=== PATIENT | male | born 1930 | race Caucasian/White ===

== ENCOUNTER 2017-01-11 10:30 | Emergency (ER) | payer MEDICARE ==
[~2017-01-11] VITALS: Ht 182.9 cm; Wt 89.3 kg
[~2017-01-11 10:30] MED LIST: CIPR500T4 PO
[2017-01-11 10:33] VITALS: BP 152/76; PULSE 75; RESP 18; TEMP 97.6; O2SAT 98
[2017-01-11] MEDS ORDERED: SODIUM CHLORIDE 0.9% FLUSH 10 ML FLUSH IVF PRN (10:45)
[2017-01-11 10:49] VITALS: O2SAT 98
[2017-01-11] MEDS ORDERED: TAMS0.4C4 PO (10:53)
[2017-01-11] MEDS ORDERED: FINA5TAB2 PO (10:53)
[2017-01-11] MEDS ORDERED: OMEP20TA PO (10:53)
[2017-01-11] MEDS ORDERED: AMLO2.5T PO (10:53)
[2017-01-11] MEDS ORDERED: ZOCO10TA PO (10:53)
[2017-01-11] MEDS ORDERED: LISI20TA3 PO (10:53)
--- NOTE | 2017-01-11 10:56 | PD ---
HPI Chief Complaint: Dizziness Time Seen by Provider: 10:40 Travel History International Travel<30 days: No Contact w/Intl Traveler<30days: No Traveled to known affect area: No History of Present Illness HPI 86-year-old male notes waking up with vertiginous dizziness. He tried to go back asleep and woke up with persistent vertigo. While he was vertiginous prior to ER arrival the patient was somewhat tremulous. Patient arrives by private vehicle. There was no shortness of breath or chest pain at any point. He denies headache. He denies any recent change in medication. He states he's been in his normal state of health over the past week or so. No otalgia or otorrhea. PFSH Past Medical History Cardiovascular Problems: Yes (HTN) High Cholesterol: Yes Diabetes: Yes (BORDERLINE) Patient Takes Glucophage: No Diminished Hearing: No GERD: Yes Genitourinary: Yes (ENLARGED PROSTATE) Hypertension: Yes Respiratory: Yes (SARCOIDOSIS) Triglycerides - High: Yes Tetanus Vaccination: Unknown Influenza Vaccination: Yes Social History Alcohol Use: No Tobacco Use: No Substance Use: No Allergies-Medications (Allergen,Severity, Reaction): Coded Allergies: Penicillin (Unverified Allergy, Unknown, 01/11/17) Reported Meds & Prescriptions Reported Meds & Active Scripts Active Meclizine (Meclizine HCl) 25 Mg Tab 25 Mg PO TID PRN Ativan (Lorazepam) 0.5 Mg Tab 0.5 Mg PO Q6H PRN Reported Tamsulosin (Tamsulosin HCl) 0.4 Mg Cap 0.4 Mg PO HS Finasteride 5 Mg Tab 5 Mg PO DAILY Do not crush. Zocor (Simvastatin) 10 Mg Tab 10 Mg PO DAILY Omeprazole 20 Mg Tab 20 Mg PO DAILY Amlodipine (Amlodipine Besylate) 2.5 Mg Tab 2.5 Mg PO DAILY Lisinopril-Hctz 20-25 Mg Tab 1 Tab PO DAILY Review of Systems Except as stated in HPI: all other systems reviewed are Neg Physical Exam Narrative GENERAL: 86-year-old male well-nourished male developed SKIN: Focused skin assessment warm/dry. HEAD: Atraumatic. Normocephalic. EYES: Pupils equal and round. No scleral icterus. No injection or drainage. ENT: No nasal bleeding or discharge. Mucous membranes pink and moist. NECK: Trachea midline. No JVD. CARDIOVASCULAR: Regular rate and rhythm. No murmur appreciated. RESPIRATORY: No accessory muscle use. Clear to auscultation. Breath sounds equal bilaterally. GASTROINTESTINAL: Abdomen soft, non-tender, nondistended. Hepatic and splenic margins not palpable. MUSCULOSKELETAL: No obvious deformities. No clubbing. No cyanosis. No edema. NEUROLOGICAL: Awake and alert. No obvious cranial nerve deficits. Motor grossly within normal limits. Normal speech. PSYCHIATRIC: Appropriate mood and affect; insight and judgment normal. Data Data Last Documented VS Vital Signs Date Time Temp Pulse Resp B/P Pulse Ox O2 Delivery O2 Flow Rate FiO2 01/11/17 12:07 69 16 132/61 96 Room Air 01/11/17 10:33 97.6 Vital signs reviewed Orders Electrocardiogram (01/11/17 10:41) Basic Metabolic Panel (Bmp) (01/11/17 10:41) Complete Blood Count With Diff (01/11/17 10:41) Troponin I (01/11/17 10:41) Ecg Monitoring (01/11/17 10:41) Iv Access Insert/Monitor (01/11/17 10:41) Oximetry (01/11/17 10:41) Sodium Chloride 0.9% Flush (Ns Flush) (01/11/17 10:45) Lorazepam Inj (Ativan Inj) (01/11/17 11:00) Meclizine (Antivert) (01/11/17 11:00) Labs Laboratory Tests Test 01/11/17 11:05 White Blood Count 5.4 TH/MM3 Red Blood Count 4.09 MIL/MM3 Hemoglobin 13.4 GM/DL Hematocrit 38.0 % Mean Corpuscular Volume 92.9 FL Mean Corpuscular Hemoglobin 32.8 PG Mean Corpuscular Hemoglobin 35.3 % Concent Red Cell Distribution Width 11.9 % Platelet Count 299 TH/MM3 Mean Platelet Volume 6.3 FL Neutrophils (%) (Auto) 66.5 % Lymphocytes (%) (Auto) 23.7 % Monocytes (%) (Auto) 8.2 % Eosinophils (%) (Auto) 0.6 % Basophils (%) (Auto) 1.0 % Neutrophils # (Auto) 3.6 TH/MM3 Lymphocytes # (Auto) 1.3 TH/MM3 Monocytes # (Auto) 0.4 TH/MM3 Eosinophils # (Auto) 0.0 TH/MM3 Basophils # (Auto) 0.1 TH/MM3 CBC Comment DIFF FINAL Differential Comment Sodium Level 133 MEQ/L Potassium Level 3.4 MEQ/L Chloride Level 97 MEQ/L Carbon Dioxide Level 26.5 MEQ/L Anion Gap 10 MEQ/L Blood Urea Nitrogen 12 MG/DL Creatinine 0.80 MG/DL Estimat Glomerular Filtration 92 ML/MIN Rate Random Glucose 120 MG/DL Calcium Level 8.7 MG/DL Troponin I LESS THAN 0.02 NG/ML MDM Medical Decision Making Medical Screen Exam Complete: Yes Emergency Medical Condition: Yes Differential Diagnosis Peripheral vertigo, central vertigo, diplopia Narrative Course CBC & BMP Diagram 01/11/17 11:05 Tn < 0.02 EKG: Sinus, rate 74, normal axis EKG shows a sinus rhythm with a rate of 74 The patient is resting comfortably and feels better, is alert and in no distress. The patients results and examination findings were discussed. The repeat examination is unremarkable and benign. The history, exam, diagnostic testing, and current condition do not suggest any significant pathology to warrant further testing, continued ED treatment, admission, or surgical evaluation at this point. The vital signs have been stable. The patient does not have uncontrollable pain, intractable vomiting, or other significant symptoms. The patient's condition is stable and appropriate for discharge. The patient will pursue further outpatient evaluation with a primary care physician or other designated or consulting physician as indicated in the discharge instructions. The patient expressed understanding and was agreeable with this plan. Diagnosis Primary Impression: Vertigo Referrals: [facility] 2 days Additional Instructions: You have a choice when it comes to health care, and we are glad that you chose [facility]. Hopefully, we have met your expectations on today's visit. You are welcome to return to [facility] at any time, as we are committed to meeting the health care needs of our community. Med/Other Pt SpecificInfo: Prescription(s) given Scripts Meclizine 25 Mg Tab25 Mg PO TID PRN (VERTIGO) #15 TAB Ref 0 Prov:Ferdinand Sheikh MD 01/11/17 Lorazepam (Ativan)0.5 Mg Tab0.5 Mg PO Q6H PRN (VERTIGO) #10 TAB Ref 0 Prov:Ferdinand Sheikh MD 01/11/17 Disposition: 01 DISCHARGE HOME Condition: Stable Ferdinand Sheikh MD Jan 11, 2017 10:55
[2017-01-11] MEDS ORDERED: LORazepam 2 MG/ML VIAL IV PUSH ONE (11:00)
[2017-01-11] MEDS ORDERED: MECLIZINE HCL 25 MG TAB PO ONE (11:00)
[2017-01-11 11:11] LABS: AUTOMATED NEUTROPHIL # 3.6 TH/MM3 (1.8-7.7); BASOPHIL # 0.1 TH/MM3 (0-0.2); EOSINOPHIL % 0.6 % (0.0-4.0); HEMO FLAGS DIFF FINAL; LYMPH % 23.7 % (9.0-44.0); LYMPHOCYTE # 1.3 TH/MM3 (1.0-4.8); MEAN CELL VOLUME 92.9 FL (80.0-100.0); MEAN CORPUSCULAR HEMOGLOBIN 32.8 PG (27.0-34.0); MEAN CORPUSCULAR HGB CONC 35.3 % (32.0-36.0); MONO % 8.2 % (0.0-8.0); NEUT % 66.5 % (16.0-70.0); PLATELET COUNT 299 TH/MM3 (150-450); RED BLOOD COUNT 4.09 MIL/MM3 (4.50-5.90); RED CELL DISTRIBUTION WIDTH 11.9 % (11.6-17.2); WHITE BLOOD COUNT 5.4 TH/MM3 (4.0-11.0)
[2017-01-11 11:18] LABS: CHLORIDE 97 MEQ/L (98-107); POTASSIUM 3.4 MEQ/L (3.5-5.1); SODIUM (NA) 133 MEQ/L (136-145)
[2017-01-11 11:21] LABS: ANION GAP 10 MEQ/L (5-15); BICARBONATE 26.5 MEQ/L (21.0-32.0); BLOOD UREA NITROGEN 12 MG/DL (7-18)
[2017-01-11 11:25] LABS: GLOMERULAR FILTRATION RATE 92 ML/MIN (>89)
[2017-01-11] MEDS ORDERED: MECL-62 PO (11:51)
[2017-01-11] MEDS ORDERED: LORA-392 PO (11:51)
[2017-01-11 12:07] VITALS: BP 132/61; PULSE 69; RESP 16; O2SAT 96
--- NOTE | 2017-01-12 07:35 | EKG ---
Date Performed: 01/11/2017 Time Performed: 10:56:22 PTAGE: 86 years EKG: Sinus rhythm INDETERMINATE AXIS MODERATE INTRAVENTRICULAR CONDUCTION DELAY BORDERLINE ECG PREVIOUS TRACING : 04/23/2014 14.18 DOCTOR: Joy Zamoraon Interpretating Date/Time 01/12/2017 07:34:53
== END 2017-01-11 12:13 | disposition home or self-care (01) ==
LOC: PHED 10:30
DX: R42 Dizziness and giddiness (principal); Z88.0 Allergy status to penicillin; I10 Essential (primary) hypertension; E78.00 Pure hypercholesterolemia, unspecified; N40.0 Benign prostatic hyperplasia without lower urinary tract symptoms; D86.9 Sarcoidosis, unspecified
CPT/HCPCS: 80048; 84484; 85025; 93005; 96374; 99284; J2060

== ENCOUNTER 2017-03-15 20:58 | Emergency (ER) | payer MEDICARE ==
[~2017-03-15] VITALS: Ht 182.9 cm; Wt 91.0 kg
[~2017-03-15 20:58] MED LIST changes: +AMLO2.5T PO; -CIPR500T4 PO; +FINA5TAB2 PO; +LISI20TA3 PO; +LORA-392 PO; +MECL-62 PO; +OMEP20TA PO; +TAMS0.4C4 PO; +ZOCO10TA PO
[2017-03-15 21:01] VITALS: BP 116/86; PULSE 89; RESP 16; TEMP 97.6; O2SAT 97
--- NOTE | 2017-03-15 22:07 | PD ---
HPI Chief Complaint: Complaint Time Seen by Provider: 22:00 Travel History International Travel<30 days: No Contact w/Intl Traveler<30days: No Traveled to known affect area: No History of Present Illness HPI 86-year-old male complains of pain. Urination and swelling of the glands. He is also seeing blood in the urine. He accidentally zipped his pants shut upon the foreskin several days prior. He experiences pain about the foreskin during urination. No fever. No abdominal pain. No hesitancy or pelvic fullness. PFSH Past Medical History Cardiovascular Problems: Yes (HTN) High Cholesterol: Yes Diabetes: Yes (BORDERLINE) Diminished Hearing: No GERD: Yes Genitourinary: Yes (ENLARGED PROSTATE) Hypertension: Yes Respiratory: Yes (SARCOIDOSIS) Triglycerides - High: Yes ?: Not Social History Alcohol Use: No Tobacco Use: No Substance Use: No Allergies-Medications (Allergen,Severity, Reaction): Coded Allergies: penicillin G (Unverified Allergy, Unknown, 03/15/17) Reported Meds & Prescriptions Reported Meds & Active Scripts Active Clotrimazole Topical (Clotrimazole) 1% Cream 1 Applic TOPICAL BID 7 Days Meclizine (Meclizine HCl) 25 Mg Tab 25 Mg PO TID PRN Ativan (Lorazepam) 0.5 Mg Tab 0.5 Mg PO Q6H PRN Reported Tamsulosin (Tamsulosin HCl) 0.4 Mg Cap 0.4 Mg PO HS Finasteride 5 Mg Tab 5 Mg PO DAILY Do not crush. Zocor (Simvastatin) 10 Mg Tab 10 Mg PO DAILY Omeprazole 20 Mg Tab 20 Mg PO DAILY Amlodipine (Amlodipine Besylate) 2.5 Mg Tab 2.5 Mg PO DAILY Lisinopril-Hctz 20-25 Mg Tab 1 Tab PO DAILY Review of Systems Except as stated in HPI: all other systems reviewed are Neg General / Constitutional: No: Fever Genitourinary: Positive: Dysuria Physical Exam Narrative GENERAL: Well-nourished well-developed 56-year-old female pleasant : Foreskin is edematous and erythematous SKIN: Warm and dry. HEAD: Atraumatic. Normocephalic. EYES: Pupils equal and round. No scleral icterus. No injection or drainage. ENT: No nasal bleeding or discharge. Mucous membranes pink and moist. NECK: Trachea midline. No JVD. CARDIOVASCULAR: Regular rate and rhythm. RESPIRATORY: No accessory muscle use. Clear to auscultation. Breath sounds equal bilaterally. GASTROINTESTINAL: Abdomen soft, non-tender, nondistended. Hepatic and splenic margins not palpable. MUSCULOSKELETAL: Extremities without clubbing, cyanosis, or edema. No obvious deformities. NEUROLOGICAL: Awake and alert. No obvious cranial nerve deficits. Motor grossly within normal limits. Five out of 5 muscle strength in the arms and legs. Normal speech. PSYCHIATRIC: Appropriate mood and affect; insight and judgment normal. Data Data Last Documented VS Vital Signs Date Time Temp Pulse Resp B/P (MAP) Pulse Ox O2 Delivery O2 Flow Rate FiO2 03/15/17 22:58 85 18 120/82 (95) 96 03/15/17 21:01 97.6 Vital signs reviewed MDM Medical Decision Making Medical Screen Exam Complete: Yes Emergency Medical Condition: Yes Differential Diagnosis Balanitis, phimosis, paraphimosis, UTI Narrative Course Patient has balanitis. Hygiene discussed. Clotrimazole. Patient ready discharge. Diagnosis Primary Impression: Balanitis Referrals: Alan Presley DO call for appointment Additional Instructions: You have a choice when it comes to health care, and we are glad that you chose [facility]. Hopefully, we have met your expectations on today's visit. You are welcome to return to [facility] at any time, as we are committed to meeting the health care needs of our community. PLEASE BE EXTREMELY THOROUGH WITH DAILY HYGIENE OF THE PENIS. APPLY CREAM TWICE DAILY FOR 1 WEEK. Med/Other Pt SpecificInfo: Prescription(s) given Scripts Clotrimazole Topical (Clotrimazole Topical) 1% Cream 1 APPLIC TOPICAL BID for 7 Days, #15 GM Prov: Ferdinand Sheikh MD 03/15/17 Disposition: 01 DISCHARGE HOME Condition: Stable Ferdinand Sheikh MD Mar 15, 2017 22:07
[2017-03-15] MEDS ORDERED: CLOT1CRE TOPICAL (22:16)
[2017-03-15 22:58] VITALS: BP 120/82
== END 2017-03-15 22:59 | disposition home or self-care (01) ==
LOC: PHED 20:58
DX: N48.1 Balanitis (principal)
CPT/HCPCS: 99283